=== PATIENT | male | born 1995 | race Caucasian/White ===

== ENCOUNTER 2016-02-28 13:39 | Emergency (ER) ==
[2016-02-28 13:44] VITALS: BP 151/86; TEMP 97.1; BMI 26.4
--- NOTE | 2016-02-28 14:15 | DI ---
EXAM: Radiographs, right hand HISTORY: Initial presentation for right hand trauma. COMPARISON: None available. TECHNIQUE: Three views. FINDINGS: Bone mineralization is normal. There is no fracture or dislocation. The joint spaces ar e maintained. No focal soft tissue abnormality is seen. IMPRESSION: No fracture or dislocation.
--- NOTE | 2016-02-28 14:44 | ED.PDOC ---
General ED Provider: Dr. TREASURE CALDERA Chief Complaint: Hand Pain/Injury Stated Complaint: hand pain right Time Seen by Physician: 13:40 Mode of Arrival: Walk-In Information Source: Patient Exam Limitations: No limitations Primary Care Provider: SPENCER ESPANA Nursing and Triage Documentation Reviewed and Agree: Yes Musculoskeletal Complaint Exam - Hand/Wrist Complaint/Exam Location of Pain: Reports: Right (hand) Mechanism of Injury: Reports: Trauma (blunt force after punching a sink) Onset/Duration: 3 days ago Symptoms Are: Still present Onset of Pain: Reports: Days Initial Severity: Moderate Current Severity: Moderate (4t , 5th MCP) Character: Reports: Aching Alleviating: Reports: None Aggravating: Reports: None Associated Signs and Symptoms: Reports: Swelling, Redness, Bruising. Denies: Fever, Weakness, Numbness, Tingling Related History: Reports: Similar episode Differential Diagnoses: Sprain, Strain Review of Systems - Review Of Systems Constitutional: Reports: No symptoms Eyes: Reports: No symptoms Ears, Nose, Mouth, Throat: Reports: No symptoms Respiratory: Reports: No symptoms Cardiac: Reports: No symptoms GI: Reports: No symptoms : Reports: No symptoms Musculoskeletal: Reports: Joint pain (RIGHT HAND PAIN) Skin: Reports: No symptoms Neurological: Reports: No symptoms Endocrine: Reports: No symptoms Hematologic/Lymphatic: Reports: No symptoms All Other Systems: Reviewed and Negative Past Medical History - Past Medical History Previously Healthy: Yes Endocrine: Reports: None Cardiovascular: Reports: None Respiratory: Reports: None Hematological: Reports: None Gastrointestinal: Reports: None Genitourinary: Reports: None Neuro/Psych: Reports: None Musculoskeletal: Reports: None Cancer: Reports: None - Surgical History General Surgical History: Reports: None - Family History Family History: Reports: None - Social History Smoking Status: Never smoker Hx Substance Use: No Alcohol Screening: None Physical Exam - Physical Exam Appearance: Well-appearing, No pain distress, Well-nourished Eyes: MACI, EOMI, Conjunctiva clear ENT: Ears normal, Nose normal, Oropharynx normal Respiratory: Airway patent, Breath sounds clear, Breath sounds equal, Respirations nonlabored Cardiovascular: RRR, Pulses normal, No rub, No murmur GI/: Soft, Nontender, No masses, Bowel sounds normal, No Organomegaly Musculoskeletal: Normal strength (BUT PAIN OVER 4TH, 5TH MCP) Skin: Warm, Dry, Normal color Neurological: Sensation intact, Motor intact, Reflexes intact, Cranial nerves intact, Alert, Oriented Psychiatric: Affect appropriate, Mood appropriate Interpretation - Radiology Interpretation Radiology Interpretation By: Radiologist Radiology Results: No acute changes Critical Care Note - Critical Care Note Total Time (mins): 0 Course - Course Orders, Labs, Meds: Orders Category Date Time Status HAND, RIGHT 3 VIEWS Stat RADS 02/28/16 13:55 Ordered Vital Signs: Temp Pulse Resp BP Pulse Ox 02/28/16 13:40 97.1 F L 66 20 151/86 H 98 Departure - Departure Time of Disposition: 14:44 Disposition: HOME SELF-CARE Discharge Problem: Hand pain Instructions: Arthralgia (ED) Condition: Good Pt referred to PMD for follow-up: No Additional Instructions: Please call your Family Physician as soon as possible to schedule a follow-up appointment. Allergies/Adverse Reactions: Allergies No Known Allergies Allergy (Verified 02/28/16 13:44) Home Medications: Ambulatory Orders 1 [No Reported Medications] 10/10/12 Disposition Discussed With: Patient
== END 2016-02-28 14:59 | disposition home or self-care (01) ==
LOC: ED 13:39
DX: M79.641 Pain in right hand (principal); W22.8XXA Striking against or struck by other objects, initial encounter
CPT/HCPCS: 99283